=== PATIENT | female | born 1980 | race Caucasian/White ===

== ENCOUNTER 2019-06-18 18:25 | Emergency (ER) | payer OTHER ==
[~2019-06-18] VITALS: Ht 172.7 cm; Wt 79.4 kg
[2019-06-18] MEDS ORDERED: SLEEP AID50 MG PO (18:36)
[2019-06-18] MEDS ORDERED: CENTANY30 GM TOP (19:29)
[2019-06-18 19:39] VITALS: BP 122/76
== END 2019-06-18 19:40 | disposition home or self-care (01) ==
LOC: M.ERS 18:25
DX: S01.111A Laceration without foreign body of right eyelid and periocular area, initial encounter (principal); W22.8XXA Striking against or struck by other objects, initial encounter; Y93.89 Activity, other specified; Y92.89 Other specified places as the place of occurrence of the external cause; Y99.8 Other external cause status; Z98.890 Other specified postprocedural states; Z88.0 Allergy status to penicillin